=== PATIENT | male | born 1955 | race African-American/Black ===

== ENCOUNTER 2018-03-16 19:29 | Inpatient (IN) | payer MEDICAID ==
[~2018-03-16] VITALS: Ht 175.3 cm; Wt 59.4 kg
[2018-03-16] MEDS ORDERED: ACETAMINOPHEN 325MG TABLET PO STA (20:25)
[2018-03-16] MEDS ORDERED: ONDANSETRON HCL 4MG/2ML INJ IV STA (20:25)
[2018-03-16] MEDS ORDERED: MORPHINE SULFATE 4 MG/ML CPJ (NOT FOR IM USE) IV STA (20:25)
[2018-03-16] MEDS ORDERED: SODIUM CHLORIDE 0.9% 1,000 ML IV ONE ×2 (20:25)
[2018-03-16] MEDS ORDERED: LEVOFLOXACIN 750MG PREMIX 150 ML IV ONE (20:30)
[2018-03-16 21:42] LABS: BASOPHILS % 1.2 % (0.0-2.0); HEMATOCRIT. 37.4 % (42.0-52.0); HEMOGLOBIN. 12.4 g/dL (14.0-18.0); LYMPHOCYTES % 14.1 % (20.0-50.0); MEAN CORPUSCULAR HEMOGLOBIN 24.1 pg (28.0-32.0); MEAN CORPUSCULAR VOLUME 72.6 fL (80.0-94.0); MEAN PLATELET VOLUME 9.6 fl (7.4-10.4); MONOCYTES % 10.5 % (2.0-8.0); NEUTROPHILS % 72.2 % (40.0-76.0); PLATELET 199 x1000/uL (130-400); RED BLOOD CELL COUNT 5.15 mill/uL (4.7-6.1); RED CELL DISTRIBUTION WIDTH 18.5 % (11.6-14.6)
[2018-03-16 21:44] LABS: CHLORIDE 107 mEq/L (98-107)
[2018-03-16 21:48] LABS: ETHANOL BLOOD < 10 mg/dL
[2018-03-16 21:53] LABS: CREATINE KINASE 133 IU/L (39-308)
[2018-03-16 21:57] LABS: AMMONIA 31 uMol/L (<32)
[2018-03-16 22:11] LABS: CLARITY URINE CLEAR (CLEAR); COLOR URINE YELLOW (YELLOW); KETONES URINE NEGATIVE (NEGATIVE); LEUKOCYTE ESTERASE URINE NEGATIVE (NEGATIVE); NITRITE URINE NEGATIVE (NEGATIVE); OCCULT BLOOD URINE NEGATIVE (NEGATIVE); PROTEIN URINE NEGATIVE (NEGATIVE); SPECIFIC GRAVITY URINE 1.015 (1.005-1.030); UROBILINOGEN URINE 0.2 E.U./dL (0.2-1.0)
[2018-03-16 22:23] LABS: *AMPHETAMINES SCREEN URINE NEGATIVE (NEGATIVE); *BARBITURATES SCREEN URINE NEGATIVE (NEGATIVE); CANNABINOID URINE SCREEN NEGATIVE (NEGATIVE); OPIATES URINE SCREEN PRESUMTIVE POSITIVE (NEGATIVE); PHENCYCLIDINE URINE SCREEN NEGATIVE (NEGATIVE)
[2018-03-16 22:24] LABS: *BENZODIAZEPINES SCREEN URINE NEGATIVE (NEGATIVE); *COCAINE SCREEN URINE NEGATIVE (NEGATIVE)
[2018-03-16 22:27] LABS: METHADONE URINE SCREEN NEGATIVE (NEGATIVE)
[2018-03-17] VITALS (7 sets, daily range): BP systolic 115–149; BP diastolic 60–87
[2018-03-17] MEDS ORDERED: ACETAMINOPHEN 325MG TABLET PO PRN (02:30)
[2018-03-17] MEDS ORDERED: MAGNESIUM/ALUMINUM HYDROXIDE/SIMETHICONE 30ML UDC PO PRN (02:30)
[2018-03-17] MEDS ORDERED: IPRATROPIUM/ALBUTEROL 0.5-3(2.5)MG/3ML NEB INH PRN (02:30)
[2018-03-17] MEDS ORDERED: DIPHENHYDRAMINE 50MG/ML VIAL IV PRN (02:30)
[2018-03-17] MEDS ORDERED: ONDANSETRON HCL 4MG/2ML INJ IV PRN (02:30)
[2018-03-17] MEDS ORDERED: CLONIDINE 0.1MG TABLET PO PRN (02:30)
[2018-03-17] MEDS: SODIUM CHLORIDE 0.9% 1,000 ML IV SCH ×3 (03:44→23:00)
[2018-03-17] MEDS ORDERED: DEXTROSE 50% WATER 50ML SYRINGE IV PRN (03:45)
[2018-03-17] MEDS: INSULIN LISPRO 100 UNITS/ML SUBCUT SCH ×3 (06:12→16:47)
[2018-03-17] MEDS: BLOOD SUGAR DIAGNOSTIC STRIP TEST SCH ×3 (06:12→16:46)
[2018-03-17 10:30] LABS: BASOPHILS % 0.7 % (0.0-2.0); EOSINOPHILS % 2.2 % (0.0-5.0); HEMATOCRIT. 36.9 % (42.0-52.0); HEMOGLOBIN. 12.2 g/dL (14.0-18.0); LYMPHOCYTES % 8.5 % (20.0-50.0); MEAN CORPUSCULAR HEMOGLOBIN 23.9 pg (28.0-32.0); MEAN CORPUSCULAR VOLUME 72.3 fL (80.0-94.0); MEAN PLATELET VOLUME 9.6 fl (7.4-10.4); MONOCYTES % 8.3 % (2.0-8.0); NEUTROPHILS % 80.3 % (40.0-76.0); PLATELET 189 x1000/uL (130-400); RED BLOOD CELL COUNT 5.11 mill/uL (4.7-6.1); RED CELL DISTRIBUTION WIDTH 18.5 % (11.6-14.6)
[2018-03-17 11:07] LABS: CHLORIDE 106 mEq/L (98-107)
[2018-03-18 04:00] VITALS: BP 149/94
[2018-03-18 08:00] VITALS: BP 150/86
[2018-03-18] MEDS: SODIUM CHLORIDE 0.9% 1,000 ML IV SCH ×3 (08:25→19:22)
[2018-03-18 12:45] VITALS: BP 132/82
[2018-03-18 16:00] VITALS: BP 152/96
[2018-03-18 20:00] VITALS: BP 143/98
[2018-03-19] VITALS: BP 155/94
[2018-03-19 04:00] VITALS: BP 150/92
[2018-03-19 07:33] VITALS: BP 135/87
[2018-03-19 12:12] VITALS: BP 144/92
[2018-03-19] MEDS: SODIUM CHLORIDE 0.9% 1,000 ML IV SCH (15:00)
[2018-03-19 16:11] VITALS: BP 144/93
[2018-03-19 20:00] VITALS: BP 155/104
[2018-03-20] VITALS (7 sets, daily range): BP systolic 132–156; BP diastolic 76–100
[2018-03-20] MEDS: SODIUM CHLORIDE 0.9% 1,000 ML IV SCH ×2 (11:00→21:00)
[2018-03-20] MEDS: AMLODIPINE 5MG TABLET PO SCH ×2 (11:17→21:22)
[2018-03-21] VITALS: BP 133/79
[2018-03-21 04:00] VITALS: BP 136/82
[2018-03-21] MEDS: SODIUM CHLORIDE 0.9% 1,000 ML IV SCH ×2 (07:00→17:00)
[2018-03-21 08:00] VITALS: BP 137/93
[2018-03-21] MEDS: AMLODIPINE 5MG TABLET PO SCH ×2 (09:25→21:19)
[2018-03-21 11:59] VITALS: BP 120/73
[2018-03-21 16:00] VITALS: BP_SYST 114; BP_SYST 121; BP_DIAS 67; BP_DIAS 82
[2018-03-21 20:00] VITALS: BP 115/74
[2018-03-22] VITALS: BP 110/60
[2018-03-22] MEDS: SODIUM CHLORIDE 0.9% 1,000 ML IV SCH ×3 (03:00→23:00)
[2018-03-22 04:00] VITALS: BP 118/73
[2018-03-22] MEDS: AMLODIPINE 5MG TABLET PO SCH ×2 (09:05→21:01)
[2018-03-22 12:00] VITALS: BP 119/76
[2018-03-22 16:00] VITALS: BP 132/68
[2018-03-22 20:00] VITALS: BP 134/86
[2018-03-23] VITALS: BP 128/60
[2018-03-23 04:00] VITALS: BP 120/80
[2018-03-23] MEDS: SODIUM CHLORIDE 0.9% 1,000 ML IV SCH ×2 (07:38→18:27)
[2018-03-23 08:00] VITALS: BP 124/78
[2018-03-23] MEDS: AMLODIPINE 5MG TABLET PO SCH ×2 (10:19→20:56)
[2018-03-23 12:00] VITALS: BP 118/69
[2018-03-23 16:00] VITALS: BP 116/69
[2018-03-23 20:00] VITALS: BP 116/67
[2018-03-24] VITALS: BP 109/71
[2018-03-24 04:00] VITALS: BP 132/78
[2018-03-24] MEDS: SODIUM CHLORIDE 0.9% 1,000 ML IV SCH ×2 (05:00→14:50)
[2018-03-24 08:00] VITALS: BP 111/83
[2018-03-24] MEDS: AMLODIPINE 5MG TABLET PO SCH ×2 (08:08→20:51)
[2018-03-24 12:00] VITALS: BP 116/77
[2018-03-24 15:57] VITALS: BP 131/86
[2018-03-24 20:00] VITALS: BP 120/76
[2018-03-25] VITALS: BP 132/85
[2018-03-25] MEDS: SODIUM CHLORIDE 0.9% 1,000 ML IV SCH ×3 (01:00→21:00)
[2018-03-25 04:00] VITALS: BP 118/74
[2018-03-25 08:21] VITALS: BP 125/84
[2018-03-25] MEDS: AMLODIPINE 5MG TABLET PO SCH ×2 (08:57→21:20)
[2018-03-25 12:03] VITALS: BP 125/85
[2018-03-25 16:10] VITALS: BP 106/70
[2018-03-25 20:00] VITALS: BP 115/79
[2018-03-26] VITALS: BP 121/76
[2018-03-26 04:00] VITALS: BP 111/75
[2018-03-26] MEDS: SODIUM CHLORIDE 0.9% 1,000 ML IV SCH ×2 (06:13→16:31)
[2018-03-26 08:00] VITALS: BP 114/67
[2018-03-26] MEDS: AMLODIPINE 5MG TABLET PO SCH ×2 (08:25→20:49)
[2018-03-26 12:00] VITALS: BP 108/67
[2018-03-26 16:00] VITALS: BP 130/72
[2018-03-26 20:00] VITALS: BP 130/79
[2018-03-27] VITALS: BP 128/74
[2018-03-27] MEDS: SODIUM CHLORIDE 0.9% 1,000 ML IV SCH ×3 (03:00→23:00)
[2018-03-27 04:00] VITALS: BP 119/75
[2018-03-27 08:00] VITALS: BP 124/78
[2018-03-27] MEDS: AMLODIPINE 5MG TABLET PO SCH ×2 (09:33→21:00)
[2018-03-27 12:00] VITALS: BP 138/87
[2018-03-27 16:00] VITALS: BP 128/8
[2018-03-27 20:00] VITALS: BP 128/79
[2018-03-28] VITALS: BP 122/72
[2018-03-28 04:00] VITALS: BP 137/89
[2018-03-28 08:30] VITALS: BP 125/90
[2018-03-28] MEDS: AMLODIPINE 5MG TABLET PO SCH ×2 (08:57→20:40)
[2018-03-28] MEDS: SODIUM CHLORIDE 0.9% 1,000 ML IV SCH ×2 (09:00→19:00)
[2018-03-28 15:30] VITALS: BP 130/88
[2018-03-28 20:00] VITALS: BP 137/78
[2018-03-29] VITALS: BP 132/71
[2018-03-29 04:00] VITALS: BP 141/80
[2018-03-29] MEDS: SODIUM CHLORIDE 0.9% 1,000 ML IV SCH ×2 (05:00→15:00)
[2018-03-29 07:30] VITALS: BP 139/88
[2018-03-29] MEDS: AMLODIPINE 5MG TABLET PO SCH ×2 (09:06→20:32)
[2018-03-29 12:21] VITALS: BP 101/63
[2018-03-29 15:56] VITALS: BP 120/73
[2018-03-29 20:00] VITALS: BP 126/75
[2018-03-30] VITALS: BP 125/91
[2018-03-30] MEDS: SODIUM CHLORIDE 0.9% 1,000 ML IV SCH (01:00)
[2018-03-30 04:00] VITALS: BP 119/77
[2018-03-30 08:04] VITALS: BP 138/75
[2018-03-30] MEDS: AMLODIPINE 5MG TABLET PO SCH ×2 (08:32→20:14)
[2018-03-30 12:16] VITALS: BP 122/77
[2018-03-30 16:04] VITALS: BP 130/94
[2018-03-30 20:00] VITALS: BP 123/83
[2018-03-31] VITALS: BP 122/85
[2018-03-31 04:00] VITALS: BP 118/81
[2018-03-31] MEDS: SODIUM CHLORIDE 0.9% 1,000 ML IV SCH (07:00)
[2018-03-31 08:00] VITALS: BP 125/81
[2018-03-31] MEDS: AMLODIPINE 5MG TABLET PO SCH ×2 (09:10→20:26)
[2018-03-31] MEDS: VALPROIC ACID 250MG CAPSULE PO SCH ×2 (09:11→18:04)
[2018-03-31] MEDS: OLANZAPINE 5MG TABLET PO SCH (09:11)
[2018-03-31 12:00] VITALS: BP 110/71
[2018-03-31 16:00] VITALS: BP 120/73
[2018-03-31 19:42] VITALS: BP 101/71
[2018-04-01] VITALS: BP 120/71
[2018-04-01] MEDS: SODIUM CHLORIDE 0.9% 1,000 ML IV SCH ×2 (03:00→23:00)
[2018-04-01 04:00] VITALS: BP 90/47
[2018-04-01 08:00] VITALS: BP 123/76
[2018-04-01] MEDS: VALPROIC ACID 250MG CAPSULE PO SCH ×2 (08:07→16:57)
[2018-04-01] MEDS: AMLODIPINE 5MG TABLET PO SCH ×2 (08:07→21:16)
[2018-04-01] MEDS: OLANZAPINE 5MG TABLET PO SCH (08:07)
[2018-04-01 12:00] VITALS: BP 106/65
[2018-04-01 20:00] VITALS: BP 129/75
[2018-04-02] VITALS: BP 125/74
[2018-04-02 08:00] VITALS: BP 132/98
[2018-04-02] MEDS: VALPROIC ACID 250MG CAPSULE PO SCH ×2 (08:19→16:40)
[2018-04-02] MEDS: AMLODIPINE 5MG TABLET PO SCH ×2 (08:19→22:14)
[2018-04-02] MEDS: OLANZAPINE 5MG TABLET PO SCH (08:19)
[2018-04-02 12:00] VITALS: BP 125/85
[2018-04-02 16:00] VITALS: BP 124/82
[2018-04-02] MEDS: SODIUM CHLORIDE 0.9% 1,000 ML IV SCH (19:00)
[2018-04-02 20:00] VITALS: BP 114/72
[2018-04-03] VITALS: BP 120/81
[2018-04-03 04:00] VITALS: BP 127/70
[2018-04-03 08:00] VITALS: BP 114/73
[2018-04-03] MEDS: VALPROIC ACID 250MG CAPSULE PO SCH ×2 (08:16→16:08)
[2018-04-03] MEDS: AMLODIPINE 5MG TABLET PO SCH ×2 (08:16→22:19)
[2018-04-03] MEDS: OLANZAPINE 5MG TABLET PO SCH (08:16)
[2018-04-03 11:31] VITALS: BP 117/78
[2018-04-03 16:00] VITALS: BP 129/71
[2018-04-03 20:00] VITALS: BP 120/65
[2018-04-04] VITALS: BP 114/70
[2018-04-04 04:00] VITALS: BP 115/69
[2018-04-04 08:00] VITALS: BP 121/80
[2018-04-04] MEDS: VALPROIC ACID 250MG CAPSULE PO SCH ×2 (08:27→16:47)
[2018-04-04] MEDS: OLANZAPINE 5MG TABLET PO SCH (08:28)
[2018-04-04] MEDS: AMLODIPINE 5MG TABLET PO SCH ×2 (08:28→21:19)
[2018-04-04 12:00] VITALS: BP 119/73
[2018-04-04 16:00] VITALS: BP 119/72
[2018-04-04 20:00] VITALS: BP 122/83
[2018-04-05] VITALS: BP 119/74
[2018-04-05 04:00] VITALS: BP 120/80
[2018-04-05 08:00] VITALS: BP 130/64
[2018-04-05] MEDS: OLANZAPINE 5MG TABLET PO SCH (09:13)
[2018-04-05] MEDS: VALPROIC ACID 250MG CAPSULE PO SCH ×2 (09:13→17:21)
[2018-04-05] MEDS: AMLODIPINE 5MG TABLET PO SCH ×2 (09:13→21:48)
[2018-04-05 12:26] VITALS: BP 122/68
[2018-04-05 17:50] VITALS: BP 107/71
[2018-04-05] MEDS: SODIUM CHLORIDE 0.9% 1,000 ML IV SCH (19:00)
[2018-04-05 20:00] VITALS: BP 113/70
[2018-04-06] MEDS: SODIUM CHLORIDE 0.9% 1,000 ML IV SCH ×2 (03:00→23:00)
[2018-04-06 08:00] VITALS: BP 139/80
[2018-04-06] MEDS: AMLODIPINE 5MG TABLET PO SCH ×2 (08:20→20:23)
[2018-04-06] MEDS: OLANZAPINE 5MG TABLET PO SCH (08:20)
[2018-04-06] MEDS: VALPROIC ACID 250MG CAPSULE PO SCH ×2 (08:20→18:05)
[2018-04-06 12:00] VITALS: BP 106/69
[2018-04-06 16:00] VITALS: BP 126/66
[2018-04-06 20:00] VITALS: BP 110/60
[2018-04-07] VITALS: BP 108/58
[2018-04-07 04:00] VITALS: BP 105/60
[2018-04-07 08:09] VITALS: BP 143/77
[2018-04-07] MEDS: AMLODIPINE 5MG TABLET PO SCH ×2 (08:37→22:48)
[2018-04-07] MEDS: VALPROIC ACID 250MG CAPSULE PO SCH ×2 (08:37→17:23)
[2018-04-07] MEDS: OLANZAPINE 5MG TABLET PO SCH (08:37)
[2018-04-07 11:56] VITALS: BP 118/62
[2018-04-07 16:00] VITALS: BP 110/73
[2018-04-07 20:00] VITALS: BP 131/84
[2018-04-08] VITALS: BP 128/80
[2018-04-08 04:00] VITALS: BP 129/78
[2018-04-08] MEDS: SODIUM CHLORIDE 0.9% 1,000 ML IV SCH ×2 (05:00→13:31)
[2018-04-08 08:00] VITALS: BP 128/84
[2018-04-08] MEDS: OLANZAPINE 5MG TABLET PO SCH (09:05)
[2018-04-08] MEDS: VALPROIC ACID 250MG CAPSULE PO SCH ×2 (09:05→17:20)
[2018-04-08] MEDS: AMLODIPINE 5MG TABLET PO SCH ×2 (09:05→20:34)
[2018-04-08 12:00] VITALS: BP 126/77
[2018-04-08 16:00] VITALS: BP 127/79
[2018-04-08 20:00] VITALS: BP 130/82
[2018-04-09] MEDS: SODIUM CHLORIDE 0.9% 1,000 ML IV SCH ×2 (01:00→09:00)
[2018-04-09 04:00] VITALS: BP 116/84
[2018-04-09 07:50] VITALS: BP 107/64
[2018-04-09] MEDS: AMLODIPINE 5MG TABLET PO SCH ×2 (09:00→21:16)
[2018-04-09] MEDS: VALPROIC ACID 250MG CAPSULE PO SCH ×2 (09:02→17:02)
[2018-04-09] MEDS: OLANZAPINE 5MG TABLET PO SCH (09:02)
[2018-04-09 12:00] VITALS: BP 110/56
[2018-04-09 16:00] VITALS: BP 107/61
[2018-04-09 20:00] VITALS: BP 120/85
[2018-04-10] VITALS: BP 101/66
[2018-04-10 04:00] VITALS: BP 112/71
[2018-04-10 08:00] VITALS: BP 140/88
[2018-04-10] MEDS: AMLODIPINE 5MG TABLET PO SCH ×2 (08:37→21:00)
[2018-04-10] MEDS: VALPROIC ACID 250MG CAPSULE PO SCH ×2 (08:38→16:04)
[2018-04-10] MEDS: OLANZAPINE 5MG TABLET PO SCH (08:39)
[2018-04-10 12:00] VITALS: BP 125/77
[2018-04-10 16:00] VITALS: BP 119/72
[2018-04-10 20:00] VITALS: BP 104/77
[2018-04-11] VITALS: BP 115/73
[2018-04-11] MEDS: SODIUM CHLORIDE 0.9% 1,000 ML IV SCH ×3 (03:00→22:06)
[2018-04-11 04:00] VITALS: BP 126/83
[2018-04-11 08:00] VITALS: BP 120/84
[2018-04-11] MEDS: VALPROIC ACID 250MG CAPSULE PO SCH ×2 (09:48→18:44)
[2018-04-11] MEDS: AMLODIPINE 5MG TABLET PO SCH ×2 (09:48→21:00)
[2018-04-11] MEDS: OLANZAPINE 5MG TABLET PO SCH (09:48)
[2018-04-11 12:00] VITALS: BP 114/72
[2018-04-11 16:00] VITALS: BP 121/78
[2018-04-11 20:00] VITALS: BP 106/72
[2018-04-12] VITALS: BP 112/69
[2018-04-12 04:00] VITALS: BP 104/68
[2018-04-12 08:00] VITALS: BP 160/70
[2018-04-12] MEDS: VALPROIC ACID 250MG CAPSULE PO SCH ×2 (08:04→17:29)
[2018-04-12] MEDS: OLANZAPINE 5MG TABLET PO SCH (08:04)
[2018-04-12] MEDS: AMLODIPINE 5MG TABLET PO SCH ×2 (08:05→22:03)
[2018-04-12] MEDS: SODIUM CHLORIDE 0.9% 1,000 ML IV SCH ×2 (09:00→19:00)
[2018-04-12 12:00] VITALS: BP 137/84
[2018-04-12 16:00] VITALS: BP 135/70
[2018-04-12 20:00] VITALS: BP 137/75
[2018-04-13] VITALS: BP 115/72
[2018-04-13 04:00] VITALS: BP 142/75
[2018-04-13] MEDS: SODIUM CHLORIDE 0.9% 1,000 ML IV SCH ×2 (05:00→14:47)
[2018-04-13 08:00] VITALS: BP 142/100
[2018-04-13] MEDS: VALPROIC ACID 250MG CAPSULE PO SCH ×2 (08:21→16:18)
[2018-04-13] MEDS: AMLODIPINE 5MG TABLET PO SCH ×2 (08:21→21:39)
[2018-04-13] MEDS: OLANZAPINE 5MG TABLET PO SCH (08:22)
[2018-04-13 12:00] VITALS: BP 106/68
[2018-04-13 20:00] VITALS: BP 131/71
[2018-04-14] VITALS: BP 134/72
[2018-04-14] MEDS: SODIUM CHLORIDE 0.9% 1,000 ML IV SCH (01:00)
[2018-04-14 04:00] VITALS: BP 116/69
[2018-04-14 08:00] VITALS: BP 117/65
[2018-04-14] MEDS: AMLODIPINE 5MG TABLET PO SCH ×2 (10:13→21:03)
[2018-04-14] MEDS: OLANZAPINE 5MG TABLET PO SCH (10:13)
[2018-04-14] MEDS: VALPROIC ACID 250MG CAPSULE PO SCH ×2 (10:14→17:10)
[2018-04-14 12:00] VITALS: BP 134/74
[2018-04-14] MEDS: ACETAMINOPHEN 325MG TABLET PO PRN ×2 (13:35→21:03)
[2018-04-14 16:00] VITALS: BP 119/73
[2018-04-14 17:56] LABS: CLARITY URINE CLEAR (CLEAR); COLOR URINE YELLOW (YELLOW); KETONES URINE NEGATIVE (NEGATIVE); LEUKOCYTE ESTERASE URINE NEGATIVE (NEGATIVE); NITRITE URINE NEGATIVE (NEGATIVE); OCCULT BLOOD URINE NEGATIVE (NEGATIVE); PH URINE 6.5 (4.5-8.0); PROTEIN URINE NEGATIVE (NEGATIVE); SPECIFIC GRAVITY URINE 1.013 (1.005-1.030); UROBILINOGEN URINE 0.2 E.U./dL (0.2-1.0)
[2018-04-14 20:00] VITALS: BP 145/79
[2018-04-14 23:46] LABS: BASOPHILS % 1.1 % (0.0-2.0); EOSINOPHILS % 4.8 % (0.0-5.0); HEMATOCRIT. 37.8 % (42.0-52.0); HEMOGLOBIN. 12.5 g/dL (14.0-18.0); LYMPHOCYTES % 20.1 % (20.0-50.0); MEAN CORPUSCULAR HEMOGLOBIN 23.5 pg (28.0-32.0); MEAN CORPUSCULAR VOLUME 71.5 fL (80.0-94.0); MEAN PLATELET VOLUME 8.9 fl (7.4-10.4); PLATELET 298 x1000/uL (130-400); RED BLOOD CELL COUNT 5.29 mill/uL (4.7-6.1); RED CELL DISTRIBUTION WIDTH 16.1 % (11.6-14.6)
[2018-04-15 00:27] LABS: CHLORIDE 103 mEq/L (98-107)
[2018-04-15 08:00] VITALS: BP 133/87
[2018-04-15] MEDS: VALPROIC ACID 250MG CAPSULE PO SCH ×2 (08:40→17:01)
[2018-04-15] MEDS: OLANZAPINE 5MG TABLET PO SCH (08:40)
[2018-04-15] MEDS: AMLODIPINE 5MG TABLET PO SCH ×2 (08:42→22:32)
[2018-04-15] MEDS: ACETAMINOPHEN 325MG TABLET PO PRN (08:44)
[2018-04-15 12:00] VITALS: BP 117/79
[2018-04-15 20:00] VITALS: BP 135/85
[2018-04-16] VITALS: BP 143/70
[2018-04-16 04:00] VITALS: BP 145/81
[2018-04-16 08:00] VITALS: BP 129/87
[2018-04-16] MEDS: VALPROIC ACID 250MG CAPSULE PO SCH ×2 (08:17→17:29)
[2018-04-16] MEDS: AMLODIPINE 5MG TABLET PO SCH ×2 (08:18→21:00)
[2018-04-16] MEDS: OLANZAPINE 5MG TABLET PO SCH (08:18)
[2018-04-16 12:00] VITALS: BP 120/68
[2018-04-16 16:00] VITALS: BP 116/72
[2018-04-16 20:00] VITALS: BP 101/61
[2018-04-17] VITALS: BP 110/60
[2018-04-17 04:00] VITALS: BP 108/68
[2018-04-17 08:52] VITALS: BP 110/75
[2018-04-17] MEDS: OLANZAPINE 5MG TABLET PO SCH (08:54)
[2018-04-17] MEDS: VALPROIC ACID 250MG CAPSULE PO SCH ×2 (08:54→16:00)
[2018-04-17] MEDS: AMLODIPINE 5MG TABLET PO SCH ×2 (08:54→22:04)
[2018-04-17 12:00] VITALS: BP 103/79
[2018-04-17 16:00] VITALS: BP 109/67
[2018-04-17 20:00] VITALS: BP 132/75
[2018-04-18] VITALS: BP 121/60
[2018-04-18 04:00] VITALS: BP 125/64
[2018-04-18] MEDS: VALPROIC ACID 250MG CAPSULE PO SCH ×2 (09:34→16:12)
[2018-04-18] MEDS: AMLODIPINE 5MG TABLET PO SCH ×2 (09:34→21:16)
[2018-04-18] MEDS: OLANZAPINE 5MG TABLET PO SCH (09:35)
[2018-04-18 20:00] VITALS: BP 114/68
[2018-04-19] VITALS: BP 110/67
[2018-04-19 04:00] VITALS: BP 104/76
[2018-04-19 07:43] VITALS: BP 118/80
[2018-04-19] MEDS: AMLODIPINE 5MG TABLET PO SCH (07:57)
[2018-04-19] MEDS: VALPROIC ACID 250MG CAPSULE PO SCH (07:57)
[2018-04-19] MEDS: OLANZAPINE 5MG TABLET PO SCH (07:57)
[2018-04-19 12:00] VITALS: BP 110/60
[2018-04-19 15:45] VITALS: BP 112/70
[2018-04-19 16:01] VITALS: BP 112/70
== END 2018-04-19 17:35 | disposition home or self-care (01) | DRG 351 ==
LOC: ER 19:29 → EDBEDREQ 22:42 → EDBEDREQTM 22:42 → ENRESERV 23:40 → EDBEDREQTM 03-17 00:18 → EDBEDREQ 03-17 00:18 → 8WST 03-17 00:37 → EDBD 03-17 00:37
PROVIDERS: ADMIT Internal Medicine; ATTEND Internal Medicine
DX: M89.8X8 Other specified disorders of bone, other site (principal); C61 Malignant neoplasm of prostate; I69.354 Hemiplegia and hemiparesis following cerebral infarction affecting left non-dominant side; R50.9 Fever, unspecified; E11.9 Type 2 diabetes mellitus without complications; F29 Unspecified psychosis not due to a substance or known physiological condition; Z79.899 Other long term (current) drug therapy; Z72.0 Tobacco use; Z59.0 Homelessness; Z88.0 Allergy status to penicillin; Z83.3 Family history of diabetes mellitus
CPT/HCPCS: 36415; 71045; 72220; 74176; 80048; 80053; 80305; 81003; 82140; 82550; 82962; 83036; 83605; 83880; 84153; 84443; 84484; 85025; 87040; 87086; 93005; 96361; 96374; 99285; G0482; J1956; J2270; J2405; J7030; J7040; G0103